=== PATIENT | female | born 1995 | race Caucasian/White ===

== ENCOUNTER 2019-12-16 18:22 | Emergency (ER) | payer OTHER, SELFPAY ==
[2019-12-16 18:29] VITALS: BP 116/69; PULSE 94; RESP 14; TEMP 37.1; O2SAT 98
--- NOTE | 2019-12-16 18:54 | ED.EAR ---
HPI - Ear Problem General Chief complaint: Ear Stated complaint: ear pain Time Seen by Provider: 12/16/19 18:49 Source: patient and RN notes reviewed Mode of arrival: ambulatory Limitations: no limitations History of Present Illness HPI Narrative: Patient presents today complaining of a 3-day history of right ear pain. Denies any additional symptoms to include cough, headache, fever, sore throat, nasal congestion or sinus pressure. Denies decreased hearing or drainage from the ear. She currently rates her pain 3/10 and describes it as intermittent shooting pain. She has been taking ibuprofen with some relief. No recent antibiotic use. Reports history of frequent ear infections. MD Complaint: ear pain Related Data Home Medications Medication Instructions Recorded Confirmed amitriptyline 25 mg PO HS 12/16/19 12/16/19 famotidine 20 mg PO DAILY 12/16/19 12/16/19 pregabalin 75 mg PO BID 12/16/19 12/16/19 sertraline 100 mg PO DAILY 12/16/19 12/16/19 Allergies Allergy/AdvReac Type Severity Reaction Status Date / Time No Known Allergies Allergy Unknown Verified 12/16/19 18:36 Review of Systems Review of Systems: Narrative: CONSTITUTIONAL: Denies body aches, fever, chills, or sweats. EYES: Denies visual changes, redness, or discharge. ENT: Denies rhinorrhea, congestion, sore throat. + Right ear pain CARDIOVASCULAR: Denies chest pain, palpitations, or edema. RESPIRATORY: Denies cough or dyspnea. GASTROINTESTINAL: Denies abdominal pain, nausea, vomiting, or diarrhea. GENITOURINARY: Denies dysuria or hematuria. SKIN: Denies rash, itching, or wounds. MUSCULOSKELETAL: Denies back pain, joint pain, or myalgia. NEUROLOGIC: Denies headache, numbness, tingling, or weakness. PSYCH: Denies depression or anxiety. [facility] Past Medical History Medical History (Updated 12/16/19 @ 18:59 by Alfreda Carranza, ASSET ACCOUNTANT, ) Anxiety Depression Sjogren's disease Social History Social History Alcohol intake: never Comments At time of signature, I have reviewed and agree with nursing past medical, surgical, social and family history unless otherwise noted. Please see nursing chart for further information. There is no relevant family history pertinent to the presenting complaint Exam Narrative: Exam Narrative: GENERAL: Well-appearing, well-nourished, and in no acute distress. HEAD: Normocephalic, atraumatic. EYES: EOMI. No redness or drainage. Conjunctivae normal. ENT: Mucous membranes pink and moist. Nares clear. No rhinorrhea. Left TM normal. Right TM is mildly injected and bulging with fluid. Throat normal. Uvula midline. NECK: Normal AROM. CHEST: No respiratory distress. Clear to auscultation. HEART: Regular rate and rhythm. No murmur appreciated. Normal peripheral pulses. EXTREMITIES: Normal range of motion. No edema. SKIN: Warm, dry, no rash. Capillary refill normal. Normal skin turgor. NEURO: No focal deficits. Alert and oriented x3. Gait steady. PSYCH: Normal affect. No signs of depression or anxiety. Course Vital Signs Vital signs: Vital Signs Temperature 98.8 F 12/16/19 18:29 Pulse Rate 94 12/16/19 18:29 Respiratory Rate 14 12/16/19 18:29 Blood Pressure 116/69 12/16/19 18:29 Pulse Oximetry 98 12/16/19 18:29 Temperature 98.8 F 12/16/19 18:29 Pulse Rate 94 12/16/19 18:29 Respiratory Rate 14 12/16/19 18:29 Blood Pressure 116/69 12/16/19 18:29 Pulse Oximetry 98 12/16/19 18:29 Reviewed Medical Decision Making Differential Diagnosis Differential Diagnosis: Otitis media, otitis externa, ruptured TM, serous otitis, eustachian tube dysfunction, cerumen impaction Vital Signs Vital Signs: Vital Signs Temperature 98.8 F 12/16/19 18:29 Pulse Rate 94 12/16/19 18:29 Respiratory Rate 14 12/16/19 18:29 Blood Pressure 116/69 12/16/19 18:29 Pulse Oximetry 98 12/16/19 18:29 Temperature 98.8 F 12/16/19 18:29 Pulse Rate 94 12/16/19 18:29 Respiratory Ra
== END 2019-12-16 19:06 | disposition home or self-care (01) ==
PROVIDERS: Emergency Provider Nurse Practitioner; PCP Nurse Practitioner Family
DX: H65.01 Acute serous otitis media, right ear (principal); F41.9 Anxiety disorder, unspecified; F32.9 Major depressive disorder, single episode, unspecified; M35.00 Sjogren syndrome, unspecified
CPT/HCPCS: 99213; G0463

== ENCOUNTER 2020-01-24 16:11 | Emergency (ER) | payer OTHER, SELFPAY ==
[2020-01-24 16:24] VITALS: BP 112/63; PULSE 99; RESP 20; TEMP 37; O2SAT 99
--- NOTE | 2020-01-24 17:01 | ED.URI ---
HPI - URI/Sore Throat General Chief Complaint: Upper Respiratory Infection Stated Complaint: sore throat/left ear pain/pressure Time Seen by Provider: 01/24/20 16:31 Source: patient and RN notes reviewed Mode of arrival: ambulatory Limitations: no limitations History of Present Illness HPI Narrative: Patient presents today complaining of 4 to 5-day history of sore throat, headache, right ear pain. Patient was seen at [facility] 5 weeks ago, diagnosed with serous otitis media and treated with amoxicillin. Report symptoms did improve, but worsened again. She recently called her primary care nurse practitioner and was placed on antibiotic drops via telemedicine visit.Reports son was recently diagnosed with strep throat. She has been taking Tylenol and ibuprofen with some relief. Denies congestion, fever, shortness of breath, loss of taste or smell. MD elicited complaint: sore throat and other (Right ear pain) Related Data Home Medications Medication Instructions Recorded Confirmed amitriptyline 25 mg PO HS 12/16/19 01/24/20 famotidine 20 mg PO DAILY 12/16/19 01/24/20 pregabalin 75 mg PO BID 12/16/19 01/24/20 sertraline 100 mg PO DAILY 12/16/19 01/24/20 Allergies Allergy/AdvReac Type Severity Reaction Status Date / Time No Known Allergies Allergy Unknown Verified 01/24/20 16:30 Review of Systems Review of Systems: Narrative: CONSTITUTIONAL: Denies body aches, fever, chills, or sweats. EYES: Denies visual changes, redness, or discharge. ENT: Denies rhinorrhea, congestion. +Sore throat, right ear pain CARDIOVASCULAR: Denies chest pain, palpitations, or edema. RESPIRATORY: Denies cough or dyspnea. GASTROINTESTINAL: Denies abdominal pain, nausea, vomiting, or diarrhea. GENITOURINARY: Denies dysuria or hematuria. SKIN: Denies rash, itching, or wounds. MUSCULOSKELETAL: Denies back pain, joint pain, or myalgia. NEUROLOGIC: Denies numbness, tingling, or weakness. +Headache PSYCH: Denies depression or anxiety. [facility] Past Medical History Medical History (Updated 01/24/20 @ 17:05 by Alfreda Carranza, RN ALLERGY, ) Anxiety Depression Sjogren's disease Social History Social History Alcohol intake: never Comments At time of signature, I have reviewed and agree with nursing past medical, surgical, social and family history unless otherwise noted. Please see nursing chart for further information. There is no relevant family history pertinent to the presenting complaint Exam Narrative: Exam Narrative: GENERAL: Well-appearing, well-nourished, and in no acute distress. HEAD: Normocephalic, atraumatic. EYES: EOMI. No redness or drainage. Conjunctivae normal. ENT: Mucous membranes pink and moist. Nares clear. No rhinorrhea. TMs normal bilaterally. Bilateral ear canals normal. Tenderness about the right eustachian tube.No movement tenderness of the external ears.Throat normal. Uvula midline. NECK: Normal AROM. Supple. No lymphadenopathy. CHEST: No respiratory distress. Clear to auscultation. HEART: Regular rate and rhythm. No murmur appreciated. Normal peripheral pulses. MUSCULOSKELETAL: No bony tenderness. EXTREMITIES: Normal range of motion. No edema. SKIN: Warm, dry, no rash. Capillary refill normal. Normal skin turgor. NEURO: No focal deficits. Alert and oriented x3. Gait steady. PSYCH: Normal affect. No signs of depression or anxiety. Course Vital Signs Vital signs: Vital Signs Temperature 98.6 F 01/24/20 16:24 Pulse Rate 99 01/24/20 16:24 Respiratory Rate 20 01/24/20 16:24 Blood Pressure 112/63 01/24/20 16:24 Pulse Oximetry 99 01/24/20 16:24 Temperature 98.6 F 01/24/20 16:24 Pulse Rate 99 01/24/20 16:24 Respiratory Rate 20 01/24/20 16:24 Blood Pressure 112/63 01/24/20 16:24 Pulse Oximetry 99 01/24/20 16:24 Reviewed MDM - URI/Sore Throat Differential Diagnosis Differential diagnosis: Likely upper respiratory infection, otitis media, sinusitis, viral infection, p
== END 2020-01-24 17:14 | disposition home or self-care (01) ==
PROVIDERS: Emergency Provider Nurse Practitioner; PCP Nurse Practitioner Family
DX: H69.91 Unspecified Eustachian tube disorder, right ear (principal); F41.9 Anxiety disorder, unspecified; F32.9 Major depressive disorder, single episode, unspecified; M35.00 Sjogren syndrome, unspecified
CPT/HCPCS: 87081; 87880; 99213; G0463